=== PATIENT | female | born 1950 | race Caucasian/White ===

== ENCOUNTER 2016-11-05 13:01 | Outpatient (CLI) | payer OTHER ==
[~2016-11-05 13:01] MED LIST: DILTIAZEM HCL120 M2 PO; LEVOTHYROXINE112 MCG PO; VITAMIN D-31000 UNIT PO
--- NOTE | 2016-11-05 14:31 | DIAGNOSTIC IMAGING REPORT ---
PROCEDURE: MG BILATERAL SCREENING W/CAD INDICATION: Screening, personal history of stereotactic benign right breast biopsy. TECHNIQUE: Standard CC and MLO views bilaterally. Computer aided detection was used. COMPARISON: 10/05/2014, 09/26/2014, 03/15/2013 FINDINGS: Mild to moderately dense fibroglandular tissue is present bilaterally. There is a biopsy clip in the central 12 o'clock right breast. The focal cluster of microcalcifications is now surgically absent. No developing densities , areas of architectural distortion, or suspicious microcalcifications. IMPRESSION: 1. Stable mammograms without radiographic evidence of malignancy. RESULT CODE: 1- Negative. A. A negative report should not delay biopsy if a dominant or clinically suspicious mass is present. 10-15% of cancers are not identified by x-ray. B. A negative report may reinforce clinical impression. C. Adenosis and dense breasts may obscure an underlying neoplasm. D. False positive reports average 6-10%. E.. A yearly screening mammogram is recommended. A reminder letter will be scheduled.
== END 2016-11-05 23:00 ==
LOC: MAM SRH 13:01
DX: Z12.31 Encounter for screening mammogram for malignant neoplasm of breast (principal)